=== PATIENT | female | born 1980 | race Caucasian/White ===

== ENCOUNTER 2021-12-01 11:11 | Emergency (ER) | payer BC, SELFPAY ==
--- NOTE | 2021-12-01 11:20 | ED.URI ---
HPI - URI/Sore Throat General Chief Complaint: Upper Respiratory Infection Stated Complaint: Sinus Time Seen by Provider: 12/01/21 11:20 Source: patient, family and RN notes reviewed Mode of arrival: ambulatory Limitations: no limitations History of Present Illness HPI Narrative: 41-year-old female presents to the [facility] with complaints of a sinus infection. Patient states she has had sinus congestion and a fever of 101 since . Has taken Sudafed and [id number] cold medication. Denies any chest pain or abdominal pain. MD elicited complaint: rhinorrhea, nasal congestion and sinus pain Related Data Allergies Allergy/AdvReac Type Severity Reaction Status Date / Time No Known Allergies Allergy Verified 12/01/21 11:31 Review of Systems Review of Systems: All systems reviewed & are unremarkable except as noted in HPI and below Constitutional: Constitutional: Reports no additional constitutional complaints, Denies chills, Reports fever(s) (101 ) and Denies headache(s) Eyes: Eyes: Reports no additional eye complaints ENT: Reports as per HPI, Denies vertigo, Denies dizziness, Denies headache(s), Reports nasal congestion, Reports nasal discharge, Denies sore throat and Reports other (Postnasal drip) Cardiovascular: Cardiovascular: Reports no additional cardiovascular complaints, Denies chest pain, Denies syncope, Denies rapid heart rate and Denies dyspnea Respiratory: Respiratory: Reports no additional respiratory complaints, Denies cough, Denies dyspnea and Denies wheezing Gastrointestinal: Gastrointestinal: Reports no additional gastrointestinal complaints, Denies abdominal pain, Denies diarrhea, Denies nausea and Denies vomiting Musculoskeletal: Musculoskeletal: Reports no additional musculoskeletal complaints and Denies numbness Integumentary/Breasts: Skin/Breast: Reports system reviewed and no additional complaints, except as docu Neurologic: Reports system reviewed and no additional complaints, except as documented, Denies vertigo, Denies dizziness, Denies syncope, Denies headache(s), Denies focal weakness and Denies numbness Psychiatric: Psychiatric: Reports no additional psychiatric complaints Allergic/Immunologic: Allergic/Immunologic: Reports no additional allergic/immunologic complaints and Denies wheezing PMFSH Past Medical History Medical History Patient denies medical problems Surgical History Surgical History (Updated 12/01/21 @ 15:14 by Mar Joiner APRN) No pertinent past surgical history Social History Social History (Updated 12/01/21 @ 15:15 by Mar Joiner APRN) Living arrangements: with family Gender identity (if verbalized by the patient): Female Comments At the time of my signature, I reviewed and agree with the nursing past medical, surgical, social, and family history. There is no relevant family history pertinent to the patient complaint. Exam Const: General: cooperative, healthy appearing, comfortable, no acute distress, well developed, alert and well groomed Nutritional Appearance: well nourished Orientation/consciousness: patient oriented x3 Limitations: no limitations HENMT: Head: normal to inspection Ears: external ears normal, TM's normal bilaterally and EAC's normal General nose exam: Normal external nose present, Abnormal mucous membranes and turbinates present boggy bilateral; not erythematous and Nasal discharge present Mouth: Yes moist mucous membranes Throat: uvula midline, posterior oropharynx abnormal cobblestoning; no edema, no erythema and no exudates and postnasal drainage Eyes: Conjunctivae: conjunctivae normal Pupils: Equal, round and reactive pupils present Neck: Neck: normal visual inspection, no lymphadenopathy and no meningeal signs Chest: Chest palpation & inspection: normal inspection of the chest Resp: Effort & Inspection: normal respiratory effort and no use of accessory mus
[2021-12-01 11:21] VITALS: BP 143/74; PULSE 85; RESP 16; TEMP 37.1; O2SAT 100
== END 2021-12-01 11:45 | disposition home or self-care (01) ==
PROVIDERS: Emergency Provider Nurse Practitioner
DX: J01.90 Acute sinusitis, unspecified (principal)
CPT/HCPCS: 87804; 99213; G0463